=== PATIENT | female | born 1995 | race Caucasian/White ===

== ENCOUNTER 2020-12-21 10:38 | Inpatient (IN) | payer SELFPAY ==
[2020-12-21] MEDS ORDERED: SODIUM CHLORIDE 1,000 ML IV STA (10:56)
[2020-12-21] MEDS ORDERED: ONDANSETRON 4 MG/2 ML VIAL IVPUSH ONE (11:32)
[2020-12-21] MEDS ORDERED: ACETAMINOPHEN 1000 MG/100 ML VIAL (NON FORMULARY) IVPB ONE ×2 (11:42→19:37)
[2020-12-21] MEDS ORDERED: ACETAMINOPHEN INJECTION 100 ML IVPB ONE ×2 (11:48→20:02)
[2020-12-21] MEDS ORDERED: ONDANSETRON 4 MG/2 ML VIAL ONE (11:48)
[2020-12-21 11:55] LABS: BASO % 0.8 % (0-2.0); EOS % 0.6 % (0-4.5); HEMATOCRIT 30.1 % (32.4-45.2); HEMOGLOBIN 10.1 GM/dL (10.7-15.3); LYMPH % 11.7 % (8-40); MCH 27.5 pg (25.7-33.7); MCHC 33.6 g/dl (32.0-36.0); MEAN PLT VOLUME 8.4 fl (7.5-11.1); MONO % 3.3 % (3.8-10.2); NEUT % 83.6 % (42.8-82.8); PLATELET COUNT 305 10^3/uL (134-434); RBC 3.67 M/mm3 (3.60-5.2); RDW 15.6 % (11.6-15.6); WHITE BLOOD COUNT 12.4 K/mm3 (4.0-10.0)
[2020-12-21 11:59] LABS: INR 1.03 (0.83-1.09); PROTHROMBIN TIME (PATIENT) 12.6 SEC (9.7-13.0)
[2020-12-21 12:01] LABS: ACTIVATED PTT 22.5 SECONDS (25.2-36.5)
[2020-12-21 12:17] LABS: CALCIUM 8.4 mg/dL (8.5-10.1)
[2020-12-21 12:21] LABS: CREATININE 0.7 mg/dL (0.55-1.3)
[2020-12-21 12:22] LABS: BILIRUBIN,TOTAL 0.2 mg/dL (0.2-1)
[2020-12-21 12:23] LABS: TOT PROT 6.8 g/dl (6.4-8.2)
[2020-12-21] MEDS ORDERED: IBUPROFEN 400 MG TABLET (FP) PO ONE ×2 (13:52→14:35)
[2020-12-21 16:54] LABS: BASO % 0.3 % (0-2.0); EOS % 0.1 % (0-4.5); HEMATOCRIT 26.3 % (32.4-45.2); HEMOGLOBIN 8.7 GM/dL (10.7-15.3); LYMPH % 15.1 % (8-40); MCH 27.4 pg (25.7-33.7); MCHC 33.3 g/dl (32.0-36.0); MEAN CELL VOLUME 82.3 fl (80-96); MEAN PLT VOLUME 8.5 fl (7.5-11.1); MONO % 2.6 % (3.8-10.2); NEUT % 81.9 % (42.8-82.8); PLATELET COUNT 252 10^3/uL (134-434); RBC 3.19 M/mm3 (3.60-5.2); RDW 15.3 % (11.6-15.6); WHITE BLOOD COUNT 10.7 K/mm3 (4.0-10.0)
[2020-12-21] MEDS ORDERED: morphine CARPU-JECT 2 MG/1 ML DISP.SYRIN IVPUSH ONE ×2 (17:19→18:10)
[2020-12-21] MEDS ORDERED: MORPHINE SULFATE 2 MG/ML VIAL ONE ×2 (17:22→18:11)
[2020-12-21] MEDS ORDERED: OXYTOCIN 10 UNITS/ML VIAL ONE (17:50)
[2020-12-21] MEDS ORDERED: OXYTOCIN 20 UNITS in 0.9% NS 20 UNIT/1,000 ML INFUS.BAG IV SCH (18:01)
[2020-12-21] MEDS: OXYTOCIN 20 UNITS in 0.9% NS 20 UNIT/1,000 ML INFUS.BAG IV SCH (18:15)
[2020-12-21 20:51] LABS: BASO % 0.6 % (0-2.0); EOS % 0.3 % (0-4.5); HEMATOCRIT 20.5 % (32.4-45.2); LYMPH % 34.7 % (8-40); MCH 27.9 pg (25.7-33.7); MCHC 33.4 g/dl (32.0-36.0); MEAN CELL VOLUME 83.3 fl (80-96); MEAN PLT VOLUME 8.5 fl (7.5-11.1); MONO % 7.5 % (3.8-10.2); NEUT % 56.9 % (42.8-82.8); PLATELET COUNT 118 10^3/uL (134-434); RBC 2.45 M/mm3 (3.60-5.2); RDW 15.2 % (11.6-15.6); WHITE BLOOD COUNT 7.1 K/mm3 (4.0-10.0)
[2020-12-21 20:52] LABS: HEMOGLOBIN 6.8 GM/dL (10.7-15.3)
[2020-12-21] MEDS ORDERED: CEFAZOLIN 1 GM in DEXTROSE 5%-WATER - 50 ML IVPB ONE (21:08)
[2020-12-21] MEDS ORDERED: oxyCODONE HCL 5 MG TABLET PO PRN (21:12)
[2020-12-21] MEDS ORDERED: CEFAZOLIN 1 GM/D5W 1 GM/50 ML BAG ONE (21:45)
[2020-12-21 23:44] VITALS: BMI 24.0
[2020-12-22] MEDS: OXYTOCIN 20 UNITS in 0.9% NS 20 UNIT/1,000 ML INFUS.BAG IV SCH (07:31)
[2020-12-22 08:49] VITALS: BP 105/57; PULSE 71; TEMP 97.8
[2020-12-22 10:31] LABS: BASO % 0.7 % (0-2.0); EOS % 3.3 % (0-4.5); HEMATOCRIT 29.9 % (32.4-45.2); HEMOGLOBIN 9.9 GM/dL (10.7-15.3); LYMPH % 46.4 % (8-40); MCH 27.6 pg (25.7-33.7); MCHC 33.2 g/dl (32.0-36.0); MEAN CELL VOLUME 83.1 fl (80-96); MEAN PLT VOLUME 8.6 fl (7.5-11.1); MONO % 9.6 % (3.8-10.2); PLATELET COUNT 177 10^3/uL (134-434); RBC 3.59 M/mm3 (3.60-5.2); RDW 14.5 % (11.6-15.6); WHITE BLOOD COUNT 8.1 K/mm3 (4.0-10.0)
== END 2020-12-22 15:27 | disposition home or self-care (01) | DRG 544 ==
LOC: JER 10:38 → JERBED 20:23 → J6S 22:32
PROVIDERS: ADMIT Obstetrics & Gynecology; ATTEND Obstetrics & Gynecology
PROC: 10D17Z9 Manual Extraction of Products of Conception, Retained, Via Natural or Artificial Opening (ICD-10-PCS; principal; 2020-12-21)
PROC: 30233N1 Transfusion of Nonautologous Red Blood Cells into Peripheral Vein, Percutaneous Approach (ICD-10-PCS; 2020-12-22)
DX: O03.4 Incomplete spontaneous abortion without complication (principal); D64.9 Anemia, unspecified; D72.829 Elevated white blood cell count, unspecified; I95.9 Hypotension, unspecified; R00.0 Tachycardia, unspecified
CPT/HCPCS: 36415; 36430; 76801-TC; 80053; 84702; 85025; 85610; 85730; 86850; 86900; 86901; 86922; 88305-TC; 99285-25; C9803; J0131; P9058; U0003; U0005